=== PATIENT | male | born 1930 | race Caucasian/White ===

== ENCOUNTER → 2016-10-04 | Outpatient (CLI) | payer OTHER ==
[~2016-10-04] MED LIST: ASPIRIN81 M2 PO; B-121000 MCG PO; B-12500 MC1 PO; CALCIUM 600 +1 EAC5 PO; CALCIUM CITRAT1 EA19 PO; DOXYCYCLINE 10100 M1 PO; FINASTERIDE5 MG PO; FISH OIL 1,4001 EACH PO; FLOMAX0.4 MG PO; JUICE PLUS PO; LATANOPROST2.5 ML OPHTHALMIC; MAGNESIUM250 M1 PO; METAMUCIL PAC1 UDPKT; METAMUCIL425 GM PO; MULTI VITAMIN1 EACH PO; NEXIUM40 MG PO; NIACIN 500 MG500 M1 PO; RECLAST 55 MG/100 M IV; SIMVASTATIN20 MG PO; VITAMIN D31000 UNI2 PO; XALATAN2.5 ML OPHTHALMIC; XALATAN2.5 ML OTIC
== END ==
LOC: NUC 10:44
DX: M81.0 Age-related osteoporosis without current pathological fracture (principal)

== ENCOUNTER → 2016-10-14 | Outpatient (CLI) | payer OTHER ==
--- NOTE | ~2016-10-14 | 2DMMODE ---
[facility] [employer] [place] [address] 2 D/M-MODE ECHOCARDIOGRAM Name: DELANEYSP IBARRA Room #: REG [facility]#: [id number] Admission: 10/14/16 Attend Phys: Blake Casey MD Discharge: Date of : 34 Date of Service: 10/14/16 1559 Report #: [id number] THIS REPORT FOR: //name// ADDENDUM APPROVED REPORT Study performed: 10/14/2016 13:03:40 EXAM: Comprehensive 2D, Doppler, and color-flow Echocardiogram Patient Location: Out-Patient Blood Pressure: 131/78 mmHg HR: 54 bpm Rhythm: NSR Other Information Study Quality: Adequate Indications CAD, aortic stenosis 2D Dimensions RVDd: 39.43 mm LVEF(%): 67.81 (>50%) IVSd: 9.18 (7-11mm) LVOT Diam: 21.05 (18-24mm) LVDd: 42.11 mm PWd: 9.44 (7-11mm) Ascending Ao: 37.47 (22-36mm) LVDs: 26.35 (25-40mm) Aortic Root: 36.66 mm Mora's LVEF: 67.81 % Volumes Left Atrial Volume (Systole) Single Plane 4CH: 79.86 mL Single Plane 2CH: 64.62 mL LA ESV Index: 37.00 mL/m2 Aortic Valve AoV Peak Kumar.: 3.01 m/s AO Peak Gr.: 36.20 mmHg LVOT Max P.84 mmHg AO Mean Gr.: 20.90 mmHg LVOT Max V: 0.98 m/s AO V2 VTI: 67.26 cm Mitral Valve E/A Ratio: 0.8 [facility] [place] [place] [address] 2 D/M-MODE ECHOCARDIOGRAM Name: DELANEYSP Lashon Room #: REG [facility]#: [id number] Admission: 10/14/16 Attend Phys: Blake Casey MD Discharge: Date of : 34 Date of Service: 10/14/16 1559 Report #: [id number] MV Decel. Time: 302.55 ms MV E Max Kumar.: 0.73 m/s MV A Kumar.: 0.90 m/s MV PHT: 87.74 ms Pulmonary Valve PV Peak Kumar.: 0.78 m/s PV Peak Gr.: 2.47 mmHg Pulmonary Vein P Vein S: 47.0 m/s P Vein D: 33.5 m/s P Vein A Dur.: 31.3 m/s Tricuspid Valve TR Peak Kumar.: 2.23 m/s RAP Estimate: 5.00 mmHg TR Peak Gr.: 19.88 mmHg RVSP: 25.00 mmHg Left Ventricle The left ventricle is normal size. There is normal LV segmental wall motion. Mild basal septal hypertrophy is present. Left ventricular systolic function is normal. LVEF is 60%. Grade I - abnormal relaxation pattern. Right Ventricle The right ventricle is normal size. The right ventricular systolic function is normal. Atria Left atrium is mildly dilated. The right atrium size is normal. Aortic Valve Aortic valve is moderately calcified. Trace aortic regurgitation. Mild to moderate aortic stenosis. Peak aortic valve gradient is 36mmHg. Mean aortic valve gradient is 21mmHg. Calculated MARY by the continuity equation is 1.1cm2. Mitral Valve Mitral valve leaflets are mildly thickened. Mild mitral annular calcification. Mild mitral regurgitation. Tricuspid Valve The tricuspid valve is normal in structure. There is mild tricuspid regurgitation. The right atrial pressure is estimated at 5 mmHg. Estimated PAP is 25mmHg. Pulmonic Valve [address] [address] 2 D/M-MODE ECHOCARDIOGRAM Name: DELANEYSP IBARRA Room #: REG CL [facility]#: [id number] Admission: 10/14/16 Attend Phys: Blake Casey MD Discharge: Date of : 34 Date of Service: 10/14/16 1559 Report #: [id number] The pulmonary valve is normal in structure. Trace pulmonic regurgitation. Great Vessels Aorta and ascending aorta measure at the upper limites of normal. IVC is normal in size and collapses >50% with inspiration. Pericardium There is no pericardial effusion. <Conclusion> The left ventricle is normal size. Left ventricular systolic function is normal. Grade I - abnormal relaxation pattern. The right ventricle is normal size. Left atrium is mildly dilated. Mild to moderate aortic stenosis. Peak aortic valve gradient is 36mmHg. Mean aortic valve gradient is 21mmHg. Calculated MARY by the continuity equation is 1.1cm2. Mild mitral regurgitation. There is mild tricuspid regurgitation. The right atrial pressure is estimated at 5 mmHg. Estimated PAP is 25mmHg. <ELECTRONICALLY SIGNED> By: Blake Casey MD 10/14/16 1559 1559 1559 Blake Casey MD /INF
== END ==
LOC: CV 13:18
DX: I25.10 Atherosclerotic heart disease of native coronary artery without angina pectoris (principal); I35.0 Nonrheumatic aortic (valve) stenosis

== ENCOUNTER → 2017-01-20 | Outpatient (CLI) | payer OTHER | LOC: CAT 10:13 | DX: I25.10 Atherosclerotic heart disease of native coronary artery without angina pectoris (principal); R91.8 Other nonspecific abnormal finding of lung field ==

== ENCOUNTER 2017-10-16 05:42 | Day surgery (SDC) | payer OTHER ==
[~2017-10-16] VITALS: Ht 177.8 cm; Wt 86.2 kg
--- NOTE | ~2017-10-16 | O ---
[facility] [place] [address] OPERATIVE REPORT Name: ISAURO BALTAZAR Room #: DEP [facility]..#: [id number] Admission: 10/16/17 Attend Phys: Isauro Natarajan MD Discharge: 10/16/17 Date of : 34 Report #: [id number] THIS REPORT FOR: //name// CC: oGpal Natarajan ____ ____ DATE OF SERVICE: 10/16/2017 PREOPERATIVE DIAGNOSIS: Bilateral upper lid ptosis with superior visual field defects both eyes. POSTOPERATIVE DIAGNOSIS: Bilateral upper lid ptosis with superior visual field defects both eyes. OPERATION PERFORMED: Bilateral upper lid functional ptosis repair. [employer] SEAMSTRESS: None. ANESTHESIA: Local with IV sedation. COMPLICATIONS: None. INDICATIONS FOR PROCEDURE: This patient has bilateral upper lid ptosis with superior visual field loss both eyes. Visual field testing demonstrates dense superior visual defects. Retesting with the upper lid elevated shows an improvement in visual field loss of over 30% and in excess of 12 degrees. The current procedure is being undertaken in order to improve the patient's visual function. Informed consent was obtained to include but not limited to the risk of loss of vision, bleeding, infection, scarring, failure to improve the problem and need for further surgery, such as adjustment of lid height. DESCRIPTION OF PROCEDURE: The patient was taken to the operating room, where 2% Xylocaine with epinephrine mixed with equal parts of 0.75% Marcaine with Wydase was administered transcutaneously to each upper lid. The patient was then prepped and draped in the usual sterile fashion. An upper lid crease incision was then made bilaterally and the dissection was carried down until the orbital septum was identified. The orbital septum was then cleared and the preaponeurotic fat identified. The levator aponeurosis was then disinserted from the anterior surface of the tarsal plate and dissected free in the avascular Mcdonnell's muscle plane. The aponeurosis was then advanced and reattached to the anterior surface of the tarsal plate with interrupted [facility] [address] [place] [address] OPERATIVE REPORT Name: ISAURO BALTAZAR Room #: DEP [facility]#: [id number] Admission: 10/16/17 Attend Phys: Isauro Natarajan MD Discharge: 10/16/17 Date of : 34 Report #: [id number] 6-0 Novafil sutures on each side, adjusting for height and contour. The redundant aponeurosis was then amputated. The incision was then closed with multiple interrupted 6-0 chromic sutures that were used to recreate an upper lid crease. The skin was closed with a running 6-0 plain gut suture. The wound was then cleaned and dressed with ophthalmic antibiotic ointment followed by a Telfa pad. The patient was transported to the recovery area, having tolerated the procedure well with no anesthesia or operative complications being noted. By: [id number] MD sonia Serrano
[~2017-10-16 05:42] MED LIST changes: +ATORVASTATIN CA40 MG PO; +IPRATROPIUM BRO30 ML NASAL
[2017-10-16 06:50] VITALS: BP 136/83
== END 2017-10-16 08:55 | disposition short-term general hospital (02) ==
LOC: OR 05:42 → TBA 05:43 → OR 08:55
DX: H02.403 Unspecified ptosis of bilateral eyelids (principal); H53.462 Homonymous bilateral field defects, left side; H53.461 Homonymous bilateral field defects, right side; E78.5 Hyperlipidemia, unspecified; K21.9 Gastro-esophageal reflux disease without esophagitis; H40.9 Unspecified glaucoma; Z98.41 Cataract extraction status, right eye; Z87.891 Personal history of nicotine dependence; Z85.01 Personal history of malignant neoplasm of esophagus; Z98.42 Cataract extraction status, left eye; Z90.49 Acquired absence of other specified parts of digestive tract; Z87.19 Personal history of other diseases of the digestive system; Z98.890 Other specified postprocedural states; Z79.899 Other long term (current) drug therapy; Z88.8 Allergy status to other drugs, medicaments and biological substances; Z79.82 Long term (current) use of aspirin
CPT/HCPCS: 50010; 50101; 50386; 50398; 51636; 56528; 56531; 70005